=== PATIENT | male | born 1975 | race Caucasian/White ===

== ENCOUNTER 2018-02-20 19:44 | Emergency (ER) | payer SELFPAY ==
[~2018-02-20 19:44] MED LIST changes: -CHOL10005 PO; -LEVE500T73 PO; -LEVO75TA73 PO; -OMEP40CA48 PO
[2018-02-20] MEDS ORDERED: LORazepam 2 MG/ML VIAL IVP ONE (19:50)
--- NOTE | 2018-02-20 19:55 | ER Report ---
History and Physical Time Seen By MD: 19:48 HPI/ROS CHIEF COMPLAINT: Seizure HISTORY OF PRESENT ILLNESS: 42-year-old male brought in by EMS from a bar where he was drinking water. Patient had a full-blown grand mal seizure. On arrival of EMS. He is postictal. Fingerstick glucose was 93. Patient was brought in by EMS. As he arrived here he began to have clearing of his mental status and his postictal state. On arrival. 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 Patient does not take any seizure medicine. He denies seizure disorder. Patient states he has a history of thyroid problems and takes levothyroxine. REVIEW OF SYSTEMS: Respiratory: No cough, no dyspnea. Cardiovascular: No chest pain, no palpitations. Gastrointestinal: No vomiting, no abdominal pain. Musculoskeletal: No back pain. Allergies: Coded Allergies: No Known Drug Allergies (Unverified , 03/08/12) Home Meds Active Scripts Levetiracetam (LEVETIRACETAM) 500 Mg Tablet, 500 MG PO QDAY for seizure prevention, #60 Prov:DEA GONZALEZ DO 02/20/18 Reported Medications Omeprazole (OMEPRAZOLE) 40 Mg Capsule.dr, 40 MG PO QDAY, CAP 02/20/18 Cholecalciferol (Vitamin D3) (VITAMIN D3) 1,000 Unit Tablet, 1000 UNIT PO, TAB 02/20/18 Levothyroxine Sodium (LEVOTHYROXINE SODIUM) 75 Mcg Tablet, 75 MCG PO QDAY, TAB 02/20/18 Acetaminophen/Hydrocodone (Lortab 5/325 Mg) 5 Mg/325 Mg Tab, 1 - 2 TAB PO Q6H, #15 03/08/12 Buspirone Hcl (Buspar) 5 Mg Tab, 10 MG PO BID 03/08/12 Mirtazapine (Mirtazapine) 15 Mg Tablet, 30 MG PO QHS 03/08/12 Reviewed Nurses Notes: Yes Old Medical Records Reviewed: Yes Constitutional Vital Sign - Last 24 Hours 02/20/18 02/20/18 02/20/18 02/20/18 19:46 19:52 19:59 20:29 Temp 97.6 Pulse 86 90 82 Resp 16 13 13 B/P (MAP) 118/86 118/86 (97) Pulse Ox 96 93 92 O2 Delivery Room Air 02/20/18 02/20/18 02/20/18 02/20/18 20:34 20:49 21:04 21:19 Pulse 81 75 77 74 Resp 14 15 16 14 B/P (MAP) 116/76 (89) Pulse Ox 92 91 92 92 Physical Exam General Appearance: The patient is alert, has no immediate need for airway protection and no signs of toxicity. Palpation of the head and neck reveal no tenderness or trauma Eyes: Pupils equal and round no pallor or injection. Disconjugate gauge right. Right eye gaze is inward. There is no pupillary response. ENT, Mouth: Mucous membranes are moist. No tongue bite elizabeth Respiratory: There are no retractions, lungs are clear to auscultation. No chest wall tenderness Cardiovascular: Regular rate and rhythm. Gastrointestinal: Abdomen is soft and non tender, no masses, bowel sounds normal. Neurological: Alert and oriented 1, patient thinks she is in [place]. He thinks at 2010. His metal status is progressively clearing. He has movement of extremities 4. He was able to transfer from the [facility] to the [facility] by scooting over with movement of all 4 extremities. Skin: Warm and dry, no rashes. Musculoskeletal: Neck is supple non tender. No meningismus, no lymphadenopathy Extremities are nontender, nonswollen and have full range of motion. No evidence of trauma DIFFERENTIAL DIAGNOSIS: After history and physical exam differential diagnosis was considered for a seizure including but not limited to electrolyte abnormality, alcohol withdrawal, medication noncompliance, head injury, and breakthrough seizure. Medical Decision Making Data Points Result Diagram: 02/20/18200102/20/182001 Laboratory Hematology Test 02/20/18 20:02 02/20/18 20:20 Red Blood Count 4.64 M/uL (4.00-5.60) Mean Corpuscular Volume 95.4 fL (80.0-96.0) Mean Corpuscular Hemoglobin 33.0 pg (26.0-33.0) Mean Corpuscular Hemoglobin Concent 34.6 g/dL (32.0-36.0) Red Cell Distribution Width 14.1 % (11.5-14.5) Mean Platelet Volume 6.6 fL (7.2-11.1) Neutrophils (%) (Auto) 52.3 % (39.4-72.5) Lymphocytes (%) (Auto) 36.1 % (17.6-49.6) Monocytes (%) (Auto) 7.0 % (4.1-12.4) Eosinophils (%) (Auto) 3.0 % (0.4-6.7) Basophils (%) (Auto) 1.6 % (0.3-1.4) Nucleated RBC Relative Count (auto) 0.0 /100WBC Neutrophils # (Auto) 4.0 K/uL (2.0-7.4) Lymphocytes # (Auto) 2.8 K/uL (1.3-3.6) Monocytes # (Auto) 0.5 K/uL (0.3-1.0) Eosinophils # (Auto) 0.2 K/uL (0.0-0.5) Basophils # (Auto) 0.1 K/uL (0.0-0.1) Nucleated RBC Absolute Count (auto) 0.00 K/uL Sodium Level 138 mmol/L (137-145) Potassium Level 4.0 mmol/L (3.5-5.0) Chloride Level 103 mmol/L (98-107) Carbon Dioxide Level 17 mmol/L (22-30) Blood Urea Nitrogen 12 mg/dl (9-21) Creatinine 0.90 mg/dl (0.66-1.25) Glomerular Filtration Rate Calc > 60.0 Whole Blood Glucose 132 mg/DL (75-110) Random Glucose 134 mg/dl (75-110) Calcium Level 9.3 mg/dl (8.4-10.2) Magnesium Level 2.0 mg/dl (1.7-2.2) Total Bilirubin 0.6 mg/dl (0.2-1.3) Aspartate Amino Transf (AST/SGOT) 35 U/L (0-35) Alanine Aminotransferase (ALT/SGPT) 27 U/L (0-56) Alkaline Phosphatase 78 U/L (0-126) Total Protein 7.6 g/dl (6.3-8.2) Albumin 4.8 g/dl (3.5-5.0) Serum Alcohol < 10 mg/dl Urine Opiates Screen Negative Urine Barbiturates Screen Negative Ur Tricyclic Antidepressants Screen Negative Urine Phencyclidine Screen Negative Urine Amphetamines Screen Negative Urine Benzodiazepines Screen Negative Urine Cocaine Screen Negative Urine Cannabinoids Screen Positive Chemistry Test 1/3/19 20:02 02/20/18 20:20 White Blood Count 7.7 k/uL (4.5-11.0) Red Blood Count 4.64 M/uL (4.00-5.60) Hemoglobin 15.3 g/dL (14.0-18.0) Hematocrit 44.2 % (42.0-52.0) Mean Corpuscular Volume 95.4 fL (80.0-96.0) Mean Corpuscular Hemoglobin 33.0 pg (26.0-33.0) Mean Corpuscular Hemoglobin Concent 34.6 g/dL (32.0-36.0) Red Cell Distribution Width 14.1 % (11.5-14.5) Platelet Count 269 K/uL (150-450) Mean Platelet Volume 6.6 fL (7.2-11.1) Neutrophils (%) (Auto) 52.3 % (39.4-72.5) Lymphocytes (%) (Auto) 36.1 % (17.6-49.6) Monocytes (%) (Auto) 7.0 % (4.1-12.4) Eosinophils (%) (Auto) 3.0 % (0.4-6.7) Basophils (%) (Auto) 1.6 % (0.3-1.4) Nucleated RBC Relative Count (auto) 0.0 /100WBC Neutrophils # (Auto) 4.0 K/uL (2.0-7.4) Lymphocytes # (Auto) 2.8 K/uL (1.3-3.6) Monocytes # (Auto) 0.5 K/uL (0.3-1.0) Eosinophils # (Auto) 0.2 K/uL (0.0-0.5) Basophils # (Auto) 0.1 K/uL (0.0-0.1) Nucleated RBC Absolute Count (auto) 0.00 K/uL Glomerular Filtration Rate Calc > 60.0 Whole Blood Glucose 132 mg/DL (75-110) Calcium Level 9.3 mg/dl (8.4-10.2) Magnesium Level 2.0 mg/dl (1.7-2.2) Total Bilirubin 0.6 mg/dl (0.2-1.3) Aspartate Amino Transf (AST/SGOT) 35 U/L (0-35) Alanine Aminotransferase (ALT/SGPT) 27 U/L (0-56) Alkaline Phosphatase 78 U/L (0-126) Total Protein 7.6 g/dl (6.3-8.2) Albumin 4.8 g/dl (3.5-5.0) Serum Alcohol < 10 mg/dl Urine Opiates Screen Negative Urine Barbiturates Screen Negative Ur Tricyclic Antidepressants Screen Negative Urine Phencyclidine Screen Negative Urine Amphetamines Screen Negative Urine Benzodiazepines Screen Negative Urine Cocaine Screen Negative Urine Cannabinoids Screen Positive Toxicology Test 02/20/18 20:02 02/20/18 20:20 Serum Alcohol < 10 mg/dl Urine Opiates Screen Negative Urine Barbiturates Screen Negative Ur Tricyclic Antidepressants Screen Negative Urine Phencyclidine Screen Negative Urine Amphetamines Screen Negative Urine Benzodiazepines Screen Negative Urine Cocaine Screen Negative Urine Cannabinoids Screen Positive EKG/Imaging Imaging Results: CT scan of the head without contrast was obtained. The results of the study are CT OF THE BRAIN WITHOUT CONTRAST HISTORY: Seizure. PROCEDURE: 3.0 mm contiguous axial sections were performed through the brain. Sagittal and coronal reformats were submitted. COMPARISON: None FINDINGS: BRAIN: Brain and intracranial structures: Encephalomalacia in the anterior right temporal lobe and the right frontal lobe likely corresponds to old trauma as there are multiple plate and screw constructs about the face. There is no hemorrhage, mass lesion, or CT evidence of acute infarct. Orbits (included portions): Unremarkable Scalp: Unremarkable Skull: No acute osseous abnormality. Postsurgical change as noted. Paranasal sinuses and mastoid air cells (included portions): Clear IMPRESSION: 1. No evidence of acute intracranial abnormality. 2. Prominent areas of encephalomalacia in the right anterior temporal lobe and within the right frontal lobe are likely from old trauma given the multiple small plate and screw constructs about the facial bones and sinuses. The study was read by the radiologist. I viewed the images myself on the PACS system. ED Course/Re-evaluation Clinical Indication for ER IV: IV Access ED Course Patient was minute to an examination room by EMS. H&P was done. The differential diagnoses was considered. Patient with a history of a brain injury. He has blindness in the right eye. He has no history of seizures. He is on no medications. He denies alcohol consumption or drug use. Patient appea rs postictal on arrival. He clears on observation. First-time seizure workup is initiated for this patient. The findings were significantly found. Patient was treated with Ativan 1 mg IV. He is discharged home on Keppra 500 mg by mouth twice a day.'s advised to follow-up with neurology. He is given information to contact a local neurologist who visits here in [place]. Decision to Disposition Date: Feb 20, 2018 Decision to Disposition Time: 20:48 Depart Departure Latest Vital Signs Vital Signs Date Time Temp Pulse Resp B/P (MAP) Pulse Ox O2 Delivery O2 Flow Rate FiO2 02/20/18 21:19 74 14 92 02/20/18 21:04 116/76 (89) 02/20/18 19:46 97.6 Room Air Impression: Primary Impression: New onset seizure Additional Impression: Hx of head injury Condition: Improved Disposition: HOME OR SELF-CARE New Scripts Levetiracetam (LEVETIRACETAM) 500 Mg Tablet 500 MG PO QDAY for seizure prevention, #60 Prov: DEA GONZALEZ DO 02/20/18 Patient Instructions: New-Onset Seizure in Adults (ED) Additional Instructions: No driving until cleared by your neurologist Follow-up with Dr. Finley, neurology [phone]. She comes to [facility] on February 26 is call and make an appointment Problem Qualifiers DEA GONZALEZ DO Feb 20, 2018 19:55
[2018-02-20 20:13] LABS: PLATELET COUNT, AUTOMATED 269 K/uL (150-450)
--- NOTE | 2018-02-20 20:52 | RADIOLOGY IMAGING REPORT ---
[place] [facility] [place] NAME: Josh Dozier : 1975 MR: [id number] V: [id number] EXAM DATE: ORDERING PHYSICIAN: DEA GONZALEZ TECHNOLOGIST: Location: [facility] Patient: Josh Dozier : 1975 Visit/Account:[id number] Date of Sevice: 02/20/2018 CT OF THE BRAIN WITHOUT CONTRAST HISTORY: Seizure. PROCEDURE: 3.0 mm contiguous axial sections were performed through the brain. Sagittal and coronal r eformats were submitted. COMPARISON: None FINDINGS: BRAIN: Brain and intracranial structures: Encephalomalacia in the anterior right temporal lobe and the right frontal lobe likely corresponds to old trauma as there are multiple plate and screw constructs about the face. There is no hemorrhage, mass lesion, or CT evidence of acute infarct. Orbits (included portions): Unremarkable Scalp: Unremarkable Skull: No acute osseous abnormality. Postsurgical change as noted. Paranasal sinuses and mastoid air cells (included portions): Clear IMPRESSION: 1. No evidence of acute intracranial abnormality. 2. Prominent areas of encephalomalacia in the right anterior temporal lobe and within the right front al lobe are likely from old trauma given the multiple small plate and screw constructs about the faci al bones and sinuses. One of the following dose optimization techniques was utilized in the performance of this exam: Autom ated exposure control; adjustment of the mA and/or kV according to the patient's size; or use of an i terative reconstruction technique. Specific details can be referenced in the facility's radiology C T exam operational policy. Report Dictated By: Kingsley Mohr MD at 02/20/2018 8:46 PM Report E-Signed By: Kingsley Mohr MD at 02/20/2018 8:49 PM WSN:[id number]
[2018-02-20] MEDS ORDERED: CHOL10005 PO (21:01)
[2018-02-20] MEDS ORDERED: LEVO75TA73 PO (21:01)
[2018-02-20] MEDS ORDERED: OMEP40CA48 PO (21:01)
[2018-02-20 21:04] VITALS: BP 116/76
[2018-02-20] MEDS ORDERED: LEVE500T73 PO (21:08)
[2018-02-20] MEDS ORDERED: levETIRAcetam 500 MG TAB PO ONE (21:10)
== END 2018-02-20 21:38 | disposition home or self-care (01) ==
LOC: MERGE 19:58 → ER 19:58
DX: R56.9 Unspecified convulsions (principal)
CPT/HCPCS: 36416; 70450; 80305; 80320; 82948; 83735; 85025; 96374; 99284; J2060; 82040; 82247; 82310; 82374; 82435; 82565; 82947; 84075; 84132; 84155; 84295; 84450; 84460; 84520

== ENCOUNTER → 2018-02-20 | Outpatient (CLI) | payer SELFPAY ==
[~2018-02-20] MED LIST: BUS5 PO; CHOL10005 PO; LEVE500T73 PO; LEVO75TA73 PO; LOR5/325 PO; MIRT-1 PO; OMEP40CA48 PO
== END ==
LOC: AMB 19:29
PROVIDERS: ATTEND Nurse Practitioner
DX: R56.9 Unspecified convulsions (principal); R41.82 Altered mental status, unspecified
CPT/HCPCS: A0425; A0427